=== PATIENT | male | born 1955 | race Caucasian/White ===

== ENCOUNTER 2023-07-16 13:52 | Outpatient (CLI) | payer MEDICARE | END 2023-07-16 13:53 | disposition home or self-care (01) | LOC: CSHCP 13:52 | PROVIDERS: ATTEND Internal Medicine Critical Care Medicine | DX: J84.9 Interstitial pulmonary disease, unspecified (principal); R94.2 Abnormal results of pulmonary function studies | CPT/HCPCS: 94010; 94726; 94760 ==

== ENCOUNTER 2023-08-08 08:32 | Outpatient (CLI) | payer MEDICARE | END 2023-08-08 08:33 | disposition home or self-care (01) | LOC: CSHCT 08:32 | PROVIDERS: ATTEND Internal Medicine Critical Care Medicine | DX: I26.09 Other pulmonary embolism with acute cor pulmonale (principal); R91.8 Other nonspecific abnormal finding of lung field; J84.10 Pulmonary fibrosis, unspecified | CPT/HCPCS: 71275; 82565 ==